=== PATIENT | female | born 1960 | race Caucasian/White ===

== ENCOUNTER 2018-03-29 06:38 | Day surgery (SDC) ==
[2018-03-29] MEDS ORDERED: LIDOCAINE 1% 20 ML MDV ID STA (07:17)
[2018-03-29] MEDS ORDERED: VERSED ONE (07:58)
[2018-03-29] MEDS ORDERED: DIPRIVAN 20 ML VIAL IVP ONE (07:58)
[2018-03-29] MEDS ORDERED: LIDOCAINE HCL 2% LUER-JET ONE (07:58)
[2018-03-29 15:22] VITALS: BP 111/63; TEMP 98.3
--- NOTE | 2018-03-30 08:35 | OP ---
INDICATIONS FOR PROCEDURE: 57 year old female presents for colonoscopy and endoscopy. She states that she has intermittent nausea in the mornings. She has intermittent abstain bowel habits. She has constipation for a couple days then normal then diarrhea. She is scheduled for endoscopy and colonoscopy. 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 MEDICATIONS: SEE ANESTHESIA NOTES. PROCEDURE: ENDOSCOPY, DUODENUM BIOPSY, JOSE RAUL BIOPSY COLONOSCOPY, RANDOM BIOPSIES. REPORT: The risks, benefits, alternatives and limitations were discussed in detail with the patient. Informed consent was obtained. After adequate sedation was achieved, the video endoscope was introduced in the posterior pharynx and esophagus under direct vision and easily advanced down to the second portion of the duodenum. I then slowly withdrew. The duodenal mucosa appeared unremarkable as did the duodenal bulb. I obtained random biopsies throughout the second portion of the duodenum. The antrum body is relatively unremarkable. The scope was retroflexed to look at the cardia and fundus which was unremarkable. The scope was anteflexed and two biopsies from the antrum and one from the body obtained for the H. Pylori testing. The scope was withdraw back through the esophagus. The esophageal mucosa appeared unremarkable it's entire length. The patient tolerated the procedure well with stable vital signs and pulse oximetry throughout. The patient's bed was turn, a digital rectal exam revealed good tone, no masses. The colonoscope was introduced into the rectum and advanced under direct visual guidance to the cecum. The cecum was identified by the appendiceal orifice and IC valve. I was to intubate the terminal ileum and examined this for 10cm. The ileum looked unremarkably. I then slowly withdrew the scope in circumferential manner and examined the mucosa quite carefully. I looked on the proximal and distal sides of the fold and flexure throughout the colon. I was able to retroflex the scope in the right colon and the left colon to increase visualization. The colon mucosa was unremarkable in it's entire length except for a few small scattered diverticuli throughout the sigmoid colon. I noted one diverticulum at the hepatic flexure area. I did obtained random biopsies in the right colon and the left colon. No other abnormalities were noted. The anal canal was unremarkable. The prep was good and the withdraw time was 11 minutes and 58 seconds. The patient tolerated the procedure well with stable vital signs and pulse oximetry throughout. IMPRESSION: 1. Normal upper endoscopy exam 2. Few diverticuli scattered throughout the sigmoid 3. Otherwise normal colonoscopy exam including the terminal ileum. RECOMMENDATIONS: 1. Will wait small bowel biopsies and random colon biopsies to evaluate for microscopic disease 2. I suggest a daily fiber supplement to include 8-10grams of fiber daily 3. I have talked to her about a healthy lifestyle and diet including what I call a dull boring routine and I describe what I meant to her about this. 4. Screening colonoscopy is recommended in 10 years. 5. We will see her back in the office as needed CC: Dr. Davonte ELLISON
== END 2018-03-29 09:20 | disposition home or self-care (01) ==
LOC: SURG 06:38
PROVIDERS: ATTEND Internal Medicine Gastroenterology
DX: K57.30 Diverticulosis of large intestine without perforation or abscess without bleeding (principal); R11.0 Nausea; K59.00 Constipation, unspecified; R19.7 Diarrhea, unspecified; Z73.1 Type A behavior pattern
CPT/HCPCS: 87339